=== PATIENT | male | born 1990 | race Two or more races ===

== ENCOUNTER → 2017-09-08 | Emergency (ER) | payer MEDICAID ==
[~2017-09-08] VITALS: Ht 182.9 cm; Wt 127.0 kg
[~2017-09-08] MED LIST: LIDOCAINE 1% (LOCAL ANESTH.) PF 5ml SDV IJ ONE; LIDOCAINE 1% (LOCAL ANESTH.) PF 5ml SDV ONE; methylPREDNISolone SOD SUCC 125 MG/2 ML VL IM ONE
[2017-09-08 22:35] VITALS: BP 131/85
== END | disposition home or self-care (01) ==
LOC: ER 22:05
DX: S33.5XXA Sprain of ligaments of lumbar spine, initial encounter (principal); X58.XXXA Exposure to other specified factors, initial encounter; Y93.89 Activity, other specified; Y92.89 Other specified places as the place of occurrence of the external cause; Y99.8 Other external cause status
CPT/HCPCS: 20552; 72131

== ENCOUNTER 2019-11-14 22:43 | Emergency (ER) | payer MEDICAID ==
[~2019-11-14] VITALS: Ht 185.4 cm; Wt 127.0 kg
[2019-11-15 04:00] VITALS: BP 133/91
[2019-11-15] MEDS ORDERED: KETOROLAC TROMETH 60MG/2ML VIAL IM ONE (04:15)
[2019-11-15] MEDS ORDERED: TETANUS-DIPTH-ACEL PERTUSSIS 0.5ML SYR Tdap IM ONE (04:15)
== END 2019-11-15 05:05 | disposition home or self-care (01) ==
LOC: ER 22:44
DX: T63.301A Toxic effect of unspecified spider venom, accidental (unintentional), initial encounter (principal); Y92.89 Other specified places as the place of occurrence of the external cause
CPT/HCPCS: 90471; 90715; 96372; 99284; J1885

== ENCOUNTER 2025-01-10 18:22 | Emergency (ER) | payer MEDICAID ==
[~2025-01-10] VITALS: Ht 182.9 cm; Wt 122.5 kg
--- NOTE | 2025-01-10 18:37 | ED.PDOC ---
Back pain HPI HPI Comments 34-year-old male presents the ED with sudden onset of mid back pain. Patient states he bent over lifted a box and had sudden onset he notes acute on chronic back pain. Patient reports has a follow up with pain management tomorrow on Tuesday. Was seen two days ago at urgent care and was given an injection and put on a muscle relaxer and anti-inflammatory he states no improvement. Rates pain 8/10 on pain scale mid right side back with a musculature. Describes as sharp shooting pain and spasm. Denies any numbness weakness, loss of bowel bladder control, or saddle anesthesia. Chief Complaint: Back Pain Time Seen by MD: 18:27 Primary Care Provider: Unk Reviewed Notes: Nurses Notes, Medications, Allergies Allergies: Coded Allergies: NO KNOWN ALLERGIES (Unverified , 09/08/17) Home Meds Active Scripts Methylprednisolone (Medrol Dosepak) 4 Mg Adi, 4 MG PO UD for 6 Days, #21 TAB UAD Prov:PAULINE GALAVIZ [facility] 01/10/25 Information Source: Patient Mode of Arrival: Ambulatory Past Medical History PAST MEDICAL HISTORY: Denies Surgical History: Denies all surgeries Family History Family History: Unknown Social History Smoker: Non-Smoker Alcohol: Denies ETOH Use Drugs: Denies Drug Use Lives In: Home All Other Systems: Reviewed and Negative Physical Exam General Appearance: No Apparent Distress, Normal HEENT: Pharynx Normal Neck: Full Range of Motion, Non-Tender, Normal, Normal Inspection Respiratory: Lungs Clear, No Respiratory Distress, Normal Breath Sounds Cardiovascular: No Murmur, Normal Peripheral Pulses, Regular Rate/Rhythm Breast Exam: Deferred Gastrointestinal: Non Tender, Soft Genitalia: Deferred Pelvic: Deferred Rectal: Deferred Extremities: Normal capillary refill, Normal range of motion, Non-tender, No pedal edema Musculoskeletal : Location: Right Extremity Location: Back (Moderate tenderness palpated over thoracic back musculature right side with noted spasms. Strength sensory motion intact upper and lower extremities. Positive radial and pedal pulses no noted crepitus or step-offs along thoracic and lumbar spine. Negative straight leg raise bilateral) Apperance: Normal Neurologic: Alert, No Motor Deficits, Normal Affect, Normal Mood, No Sensory Deficits Cerebellar Function: Normal Reflexes: Normal Skin: Dry, Normal Color, Warm Lymphatic: No Adenopathy Was a procedure done? Was a procedure done?: No Back Pain Differential Dx Differential Diagnosis: Fracture, Musculoskeletal Pain X-Ray, Labs, Meds, VS Vital Signs Date Time Temp Pulse Resp B/P (MAP) Pulse Ox O2 Delivery O2 Flow Rate FiO2 01/10/25 18:24 97.9 81 16 129/93 98 97.9 Current Medications Medications (Trade) Dose Ordered Sig/Liyah Route Start Time Stop Time Status Last Admin Ketorolac Tromethamine (Toradol Injection) 60 mg ONCE ONCE IM 01/10/25 19:00 01/10/25 19:01 DC 01/10/25 19:22 Dexamethasone Sodium Phosphate (Decadron Injection) 10 mg ONCE ONCE IM 01/10/25 19:00 01/10/25 19:01 DC 01/10/25 19:22 Acetaminophen/ Hydrocodone Bitart ([place] 5/325MG Tab) 1 tab ONCE ONCE PO 01/10/25 19:00 01/10/25 19:01 DC 01/10/25 19:23 X-Ray, Labs, Meds, VS Comment Patient given Toradol 60 mg IM, [place] 5 mg p.o. and Decadron 10 mg IM. Reports improvement in pain and function requesting discharge at this time. Script trial Medrol Dosepak. Advised to discontinue naproxen continue with a muscle relaxer. Follow up with pain management as scheduled. Take medications as prescribed side effects discussed. Return to the ER for increasing pain, numbness, weakness, saddle anesthesia, loss of bowel bladder control any concerning symptoms. Patient indicates understanding agrees with discharge plan of care. Time of 1ST Reevaluation: 18:36 Reevaluation 1ST: Unchanged Time of 2ND Reevaluation: 19:13 Reevaluation 2ND: Improved Patient Education/Counseling: Diagnosis, Treatment, Prognosis, Need For Follow Up Family Education/Counseling: No Family Present SEPSIS Sepsis Screen Date sepsis recognized/suspect: Jan 10, 2025 Time Sepsis recognized/suspect: 1824 Recent Procedure: No On Antibiotic Therapy: No Respiratory Rate >20: No Heart Rate >90: No Temp<36 C (96.8 F) or >38.3 C: No SBP <90 or MAP <65 mmHG: No New Acute Mental Status Change: No Is the patient on CPAP, BIPAP,: No Vital Signs Date Time Temp Pulse Resp B/P (MAP) Pulse Ox O2 Delivery O2 Flow Rate FiO2 01/10/25 18:24 97.9 81 16 129/93 98 97.9 Medications Medications Dose Ordered Sig/Liyah Route Start Time Stop Time Status Last Admin Dose Admin Acetaminophen/ Hydrocodone Bitart 1 tab ONCE ONCE PO 01/10/25 19:00 01/10/25 19:01 DC 01/10/25 19:23 Dexamethasone Sodium Phosphate 10 mg ONCE ONCE IM 01/10/25 19:00 01/10/25 19:01 DC 01/10/25 19:22 Ketorolac Tromethamine 60 mg ONCE ONCE IM 01/10/25 19:00 01/10/25 19:01 DC 01/10/25 19:22 Departure 1 Departure Time of Disposition: 19:13 Impression: Primary Impression: Thoracic back sprain Qualified Codes: S23.9XXA - Sprain of unspecified parts of thorax, initial encounter Disposition: HOME / SELF CARE / HOMELESS Condition: Stable e-Prescriptions Methylprednisolone (Medrol Dosepak) 4 Mg Adi 4 MG PO UD for 6 Days, #21 TAB UAD Prov: PAULINE GLAAVIZ 01/10/25 Discharged With: Self Critical Care Note Critical Care Time?: No Stability Stability form required: No PAULINE GALAVIZ Jan 10, 2025 18:37
[2025-01-10] MEDS ORDERED: METH4PAK PO (19:13)
[2025-01-10] MEDS: KETOROLAC TROMETH 60MG/2ML VIAL IM ONE (19:22)
[2025-01-10] MEDS: HYDROcodone-ACET 5/325MG TAB PO ONE (19:23)
[2025-01-10 19:39] VITALS: BP 132/96; PULSE 93; RESP 16; TEMP 97.7; O2SAT 96
== END 2025-01-10 19:41 | disposition home or self-care (01) ==
LOC: ER 18:22
DX: S23.3XXA Sprain of ligaments of thoracic spine, initial encounter (principal); G89.29 Other chronic pain; X50.0XXA Overexertion from strenuous movement or load, initial encounter; Y93.89 Activity, other specified; Y92.89 Other specified places as the place of occurrence of the external cause; Y99.8 Other external cause status
CPT/HCPCS: 96372; 99284; J1100; J1885